=== PATIENT | female | born 1995 | race Two or more races ===

== ENCOUNTER 2017-07-03 14:11 | Emergency (ER) | payer MEDICAID ==
[~2017-07-03] VITALS: Ht 167.6 cm; Wt 98.5 kg
[~2017-07-03 14:11] MED LIST: FAMO40TA73 PO; HYDR-569 PO; HYDR200T84 PO; SERT50TA PO
[2017-07-03 14:47] LABS: BASOPHILS % (AUTO) 0.4 % (0-1); EOSINOPHILS # (AUTO) 0.4 X10'3 (0-0.9); EOSINOPHILS % (AUTO) 5.8 % (0-6); HEMATOCRIT 38.1 % (35.0-45.0); HEMOGLOBIN 12.8 g/dl (12.0-16.0); LYMPHOCYTES % (AUTO) 29.2 % (21-51); MEAN CORPUSCULAR HEMOGLOBIN 29.3 PG (27.0-31.0); MEAN CORPUSCULAR HGB CONC 33.7 % (33.0-36.5); MEAN CORPUSCULAR VOLUME 87.2 FL (78-98); MEAN PLATELET VOLUME 7.2 FL (7.4-10.4); MONOCYTES # (AUTO) 0.3 X10'3 (0-0.9); MONOCYTES % (AUTO) 4.2 % (2-12); NEUTROPHILS # (AUTO) 4.2 X10'3 (1.8-7.7); NEUTROPHILS % (AUTO) 60.4 % (42-75); PLATELET COUNT 306 X10'3 (140-440); RED BLOOD COUNT 4.37 X10'6 (4.20-5.60); RED CELL DISTRIBUTION WIDTH 13.1 % (11.5-14.5); WHITE BLOOD COUNT 6.9 X10'3 (4.5-11.0)
[2017-07-03 15:08] LABS: ALANINE AMINOTRANSFERASE 51 U/L (12-78); ALBUMIN 3.7 G/DL (3.4-5.0); ALBUMIN/GLOBULIN RATIO 0.9 (1.1-1.5); ALKALINE PHOSPHATASE 74 IU/L (46-116); ANION GAP 7 (8-16); ASPARTATE AMINO TRANSFERASE 22 U/L (10-37); BETA HCG,QUANTITATIVE 33 mIU/ml; BILIRUBIN,TOTAL 0.3 MG/DL (0.1-1.0); BLOOD UREA NITROGEN 7 MG/DL (7-18); BUN/CREATININE RATIO 9.7 (6.6-38.0); CALCIUM 8.9 MG/DL (8.5-10.1); CHLORIDE 106 MMOL/L (99-107); CREATININE 0.72 MG/DL (0.40-0.90); GLUCOSE 104 MG/DL (70-104); POTASSIUM 3.5 MMOL/L (3.5-5.1); SODIUM 141 MMOL/L (135-145); TOTAL CARBON DIOXIDE 27.7 MMOL/L (24-32); TOTAL PROTEIN 7.8 G/DL (6.4-8.2); eGFR > 90 ML/MIN
[2017-07-03 15:29] LABS: CLARITY,URINE Clear (Clear); COLOR,URINE Yellow (Yellow); GLUCOSE, URINE Negative (Neg); KETONES,URINE Negative (Neg); LEUKOCYTE ESTERASE ,URINE Negative (Neg); NITRITES, URINE Negative (Neg); OCCULT BLOOD,URINE Negative (Neg); PH,URINE 7.5 (4.8-8.0); PROTEIN,URINE Negative (Neg)
[2017-07-03 15:30] LABS: UA COLLECTION TYPE CLN CATCH MIDSTREAM
[2017-07-03 16:20] VITALS: BP 130/78
== END 2017-07-03 16:21 | disposition home or self-care (01) ==
LOC: ER 14:12
DX: O46.8X1 Other antepartum hemorrhage, first trimester (principal); Z3A.01 Less than 8 weeks gestation of pregnancy; Z90.49 Acquired absence of other specified parts of digestive tract; Z79.899 Other long term (current) drug therapy
CPT/HCPCS: 36415; 80053; 81003; 84702; 85025; 86900; 86901; 99284; J7030

== ENCOUNTER 2018-05-04 07:59 | Emergency (ER) | payer MEDICAID ==
[~2018-05-04] VITALS: Ht 167.6 cm; Wt 90.0 kg
[~2018-05-04 07:59] MED LIST changes: +HYDR-4383 PO; -HYDR-569 PO
[2018-05-04 08:01] VITALS: BP 107/80
== END 2018-05-04 09:27 | disposition home or self-care (01) ==
LOC: ER 08:00
DX: S50.02XA Contusion of left elbow, initial encounter (principal); S80.02XA Contusion of left knee, initial encounter; S80.01XA Contusion of right knee, initial encounter; Z90.49 Acquired absence of other specified parts of digestive tract; W18.30XA Fall on same level, unspecified, initial encounter; Y93.89 Activity, other specified; Y92.89 Other specified places as the place of occurrence of the external cause; Y99.8 Other external cause status
CPT/HCPCS: 73080; 99284

== ENCOUNTER 2024-10-22 12:02 | Emergency (ER) | payer MEDICAID ==
[~2024-10-22] VITALS: Ht 167.6 cm; Wt 98.0 kg
[~2024-10-22 12:02] MED LIST changes: +HYDR200T73 PO; -HYDR200T84 PO
[2024-10-22 12:09] VITALS: TEMP 97.8
[2024-10-22 13:25] LABS: BASOPHILS % (AUTO) 0.2 % (0-1); EOSINOPHILS # (AUTO) 0.1 X10'3 (0-0.9); EOSINOPHILS % (AUTO) 1.8 % (0-6); HEMATOCRIT 34.2 % (35.0-45.0); HEMOGLOBIN 11.8 g/dl (12.0-16.0); LYMPHOCYTES # (AUTO) 2.4 X10'3 (1.1-4.8); LYMPHOCYTES % (AUTO) 31.6 % (21-51); MEAN CORPUSCULAR HEMOGLOBIN 31.8 PG (27.0-31.0); MEAN CORPUSCULAR HGB CONC 34.6 g/dL (33.0-36.5); MEAN CORPUSCULAR VOLUME 91.8 FL (78-98); MEAN PLATELET VOLUME 6.7 FL (7.4-10.4); MONOCYTES # (AUTO) 0.3 X10'3 (0-0.9); MONOCYTES % (AUTO) 3.7 % (2-12); NEUTROPHILS # (AUTO) 4.7 X10'3 (1.8-7.7); NEUTROPHILS % (AUTO) 62.7 % (42-75); PLATELET COUNT 331 X10'3 (140-440); RED BLOOD COUNT 3.73 X10'6 (4.20-5.60); RED CELL DISTRIBUTION WIDTH 13.4 % (11.5-14.5); WHITE BLOOD COUNT 7.6 X10'3 (4.5-11.0)
[2024-10-22 13:49] LABS: HCG SERUM QL POSITIVE
--- NOTE | 2024-10-22 13:51 | Physician Documentation ---
History of Present Illness ~ Chief Complaint: Complications Stated Complaint: VAGINAL BLEEDING Time Seen by MD: 12:35 Primary Medical Doctor: dr. wilder Mode of Arrival: Ambulatory HPI This is a 29-year-old female who presents with two weeks of vaginal bleeding and suprapubic cramping, patient reports that she had a medication on September 18 and had approximately one-week of bleeding that resolved then started bleeding again two weeks ago, patient reports that the bleeding is accompanied by clots and that she has been going through one pad every hour and a half. Patient reports no fever or chills or other systemic symptoms. Patient reports diarrhea without nausea or vomiting the last 2-3 days. Last Menstrual Period: Oct 22, 2024 Medication Reconciliation Allergies: Coded Allergies: No Known Allergies (Unverified , 10/22/24) Discontinued Medications Famotidine (Pepcid), 1 TABLET PO DAILY Discontinued Reason: ADR (Adverse Drug Rxn) Hydrocodone/Acetaminophen ([place] 5-325 Tablet), 1 TAB PO Q12H PRN Discontinued Reason: ADR (Adverse Drug Rxn) Hydroxychloroquine Sulfate* (Plaquenil*), 1 TABLET PO TID, (Reported) Discontinued Reason: ADR (Adverse Drug Rxn) Sertraline Hcl* (Zoloft*), 1 TABLET PO DAILY, (Reported) Discontinued Reason: ADR (Adverse Drug Rxn) Past Medical History Past Medical History: Seizures, UTI, Anxiety, Depression Past Surgical History: cholecystectomy Last Menstrual Period: Oct 22, 2024 Alcohol Use: None Drug Use: none Lives with: Spouse Lives In: Home Occupation: student Review of Systems ROS Lower abdominal cramping and vaginal bleeding as stated above in the HPI, otherwise all systems are reviewed and negative. Physical Exam Physical Exam Vital Signs: Temperature: 97.8, Source: Temporal, Heart Rate: 77, Respiratory Rate: 18, BP: 130/74, Pulse Oximetry: 99, Weight: 98.050 Physical Exam VITALS: Reviewed and as above. GENERAL: Alert, nontoxic appearing, no apparent distress. RESPIRATORY: No increased work of breathing, no respiratory distress, speaking in full clear sentences, lung sounds clear all alonzo CV: Regular rate and rhythm no murmur BACK: No CVA tenderness GI: Suprapubic tenderness to palpation otherwise nondistended, soft, no rebound, no guarding Progress Results/Orders Results/Orders Orders - EDGAR ONEIL US OB (10/22/24 14:02) Completed Orders - EDGAR ONEILP Cbc/Diff (10/22/24 12:52) BMP (10/22/24 12:52) Type And Screen (10/22/24 13:15) Ketorolac Trometh 15mg/Ml Vial (Toradol (10/22/24 13:45) US OB (10/22/24 14:02) Ua W/Microscopic, Cult If Ind (10/22/24 15:10) Medications Received in ER Medications (Trade) Dose Ordered Sig/Luz Route PRN Reason Start Time Stop Time Status Last Admin Dose Admin (Toradol injection) 15 mg ONCE ONCE IM 10/22/24 13:45 10/22/24 13:46 DC 10/22/24 14:17 15 MG Vital Signs 10/22/24 10/22/24 10/22/24 10/22/24 12:09 14:17 14:19 15:04 Temp 97.8 Pulse 77 72 Resp 18 16 16 16 B/P (MAP) 130/74 132/78 (96) Pulse Ox 99 100 O2 Flow Rate 0 10/22/24 15:46 Pulse 60 Resp 15 B/P (MAP) 133/80 (97) Pulse Ox 100 O2 Flow Rate 0 Laboratory Tests Test 10/22/24 12:46 10/22/24 13:15 10/22/24 15:10 Sodium Level 139 Potassium Level 3.3 L Chloride Level 107 Carbon Dioxide Level 24.9 Anion Gap 7 L Blood Urea Nitrogen 6 L Creatinine 0.66 Estimated GFR/1.73 m2 > 90 BUN/Creatinine Ratio 9.1 L Glucose Level 89 Calcium Level 8.5 Albumin 3.5 Human Chorionic Gonadotropin, Qual Positive HCG Beta Subunit 1264 Chemistry Comments White Blood Count 7.6 Red Blood Count 3.73 L Hemoglobin 11.8 L Hematocrit 34.2 L Mean Corpuscular Volume 91.8 Mean Corpuscular Hemoglobin 31.8 H Mean Corpuscular Hemoglobin Concent 34.6 Red Cell Distribution Width 13.4 Platelet Count 331 Mean Platelet Volume 6.7 L Neutrophils (%) (Auto) 62.7 Lymphocytes (%) (Auto) 31.6 Monocytes (%) (Auto) 3.7 Eosinophils (%) (Auto) 1.8 Basophils (%) (Auto) 0.2 Neutrophils # (Auto) 4.7 Lymphocytes # (Auto) 2.4 Monocytes # (Auto) 0.3 Eosinophils # (Auto) 0.1 Basophils # (Auto) 0.0 CBC Comment Urine Specimen Description Non-specified Urine Color Straw Urine Clarity Clear Urine pH 6.5 Urine Specific [place] <=1.005 Urine Protein Negative Urine Glucose (UA) Negative Urine Ketones Negative Urine Occult Blood Large H Urine Nitrite Negative Urine Bilirubin Negative Urine Urobilinogen 0.2 Urine Leukocyte Esterase Negative Urine RBC 0-2 Urine WBC None seen Urine Squamous Epithelial Cells None seen Urine Bacteria None seen Urine Starch Few Urine Culture Indicated Not ind Volume Urine Centrifuged 10 ml Urine Comment EKG/XRAY/CT/US/VASC/MRI Ultrasound : Impression OB ULTRASOUND COMPLETE: HISTORY: Vaginal Bleeding W/Cramping TECHNIQUE: Multiple real-time grayscale images of the gravid uterus with duplex Doppler color flow and M-mode spectral analysis. FINDINGS: Uterus is anteverted and measures 12.1 x 5.9 X5.9 7 cm endometrium measures 10 mm in thickness. There is hypervascular soft tissue in the endometrial canal of the fundus of the uterus. Right ovary measures 1.8 x 1.85x 2.2 cm. Left ovary is not seen and there is no free fluid.. IMPRESSION: 1. Retained products of conception noted in the fundus of the uterus Electronically Signed by:ARIC ANDREWS MD Date & Time: 10/22/241800 Dictated by: ARIC ANDREWS MD Dictation date and time: 10/22/241800 Medical Decision Making Differential Dx:Considerations: Include: -incomplete, - inevitable Additional Comment I took over care of this patient from Edgar Oneil NP. This is a 29-year-old female presenting with a incomplete miscarriage. Ultrasound indicated some retained products of conception. She does have some mild vaginal bleeding but is hemodynamically stable. She looks well and is nontoxic appearing. Her lab workup also shows some mild anemia but nothing critical. I believe that we can manage this expectantly at this time. The patient does have follow up with OBGYN in one week but I advised her to see if she can get that moved up to the next 2-3 days. We did do a beta hCG which was 1264 here today. I advised the patient that she needs a recheck in 2-3 days as well as a possible repeat ultrasound. She was advised to return to the ED sooner with any worsening bleeding or other symptoms. Departure Disposition: 01 HOME / SELF CARE / HOMELESS Impression: Primary Impression: Incomplete Additional Instructions: You have a incomplete miscarriage at this time. Your beta hCG level is 1264. Ultrasound indicates some retained products of conception. We will go ahead and manage this expectantly. Please monitor your bleeding. It will likely continue for several days. You may also pass some clots during this time. This is the natural course of a miscarriage. Please follow up in 2-3 days either here in the emergency department or with your OBGYN for a recheck. Should her bleeding increased and become uncontrollable please return immediately to the emergency department. Referrals: NO PRIMARY CARE PROVIDER (PCP) Signature Scribe Signature: 1 Attestation: 1 EDGAR ONEIL Oct 22, 2024 13:51 CLAY CANTRELL MD Oct 22, 2024 15:49
[2024-10-22 13:52] LABS: ALBUMIN 3.5 G/DL (3.4-5.0); ANION GAP 7 (8-16); BLOOD UREA NITROGEN 6 MG/DL (7-18); BUN/CREATININE RATIO 9.1 (10.0-20.0); CALCIUM 8.5 MG/DL (8.5-10.1); CHLORIDE 107 MMOL/L (99-107); CREATININE 0.66 MG/DL (0.40-0.90); GLUCOSE 89 MG/DL (70-104); POTASSIUM 3.3 MMOL/L (3.5-5.1); SODIUM 139 MMOL/L (135-145); TOTAL CARBON DIOXIDE 24.9 MMOL/L (24-32); eCRCL 116 ML/MIN; eGFR > 90 ML/MIN
[2024-10-22 13:55] LABS: BETA HCG,QUANTITATIVE 1264 mIU/ml
[2024-10-22] MEDS: ketorolac trometh 15mg/ml vial 15 MG/ML ML IM ONE (14:17)
[2024-10-22 15:21] LABS: BILIRUBIN,URINE NEGATIVE (Neg); CLARITY,URINE CLEAR (Clear); COLOR,URINE STRAW (Yellow); GLUCOSE, URINE NEGATIVE (Neg); KETONES,URINE NEGATIVE (Neg); LEUKOCYTE ESTERASE ,URINE NEGATIVE (Neg); NITRITES, URINE NEGATIVE (Neg); OCCULT BLOOD,URINE LARGE (Neg); PH,URINE 6.5 (4.8-8.0); PROTEIN,URINE NEGATIVE (Neg); UROBILINOGEN,URINE 0.2 E.U/dL (0.2-1.0)
[2024-10-22 15:22] LABS: UA COLLECTION TYPE NON-SPECIFIED
[2024-10-22 15:29] LABS: BACTERIA,URINE NONE SEEN /HPF (Neg); RBC,URINE 0-2 /HPF (0-2); SQUAMOUS EPITHELIAL CELL,UR NONE SEEN /LPF (FEW); STARCH,URINE FEW /HPF (NEGATIVE); WBC,URINE NONE SEEN /HPF (0-4)
[2024-10-22 15:46] VITALS: BP 133/80; PULSE 60; RESP 15; O2SAT 100
--- NOTE | 2024-10-22 18:04 | RADIOLOGY REPORT ---
OB ULTRASOUND COMPLETE: HISTORY: Vaginal Bleeding W/Cramping TECHNIQUE: Multiple real-time grayscale images of the gravid uterus with duplex Doppler color flow an d M-mode spectral analysis. FINDINGS: Uterus is anteverted and measures 12.1 x 5.9 X5.9 7 cm endometrium measures 10 mm in thickn ess. There is hypervascular soft tissue in the endometrial canal of the fundus of the uterus. Right ovary measures 1.8 x 1.85x 2.2 cm. Left ovary is not seen and there is no free fluid.. IMPRESSION: 1. Retained products of conception noted in the fundus of the uterus
== END 2024-10-22 16:58 | disposition home or self-care (01) ==
LOC: ER 12:03
DX: O03.4 Incomplete spontaneous abortion without complication (principal); F41.9 Anxiety disorder, unspecified; F32.A Depression, unspecified; Z90.49 Acquired absence of other specified parts of digestive tract; Z3A.14 14 weeks gestation of pregnancy
CPT/HCPCS: 36415; 76801; 76830; 80048; 81001; 84702; 84703; 85025; 86885; 86900; 86901; 93976; 96372; 99285; J1885